=== PATIENT | female | born 1985 | race Caucasian/White ===

== ENCOUNTER 2016-10-22 08:29 | Emergency (ER) | payer MEDICAID ==
[~2016-10-22] VITALS: Ht 177.8 cm; Wt 125.7 kg
[~2016-10-22 08:29] MED LIST: ACET-1600 PO; HYDR-3237 PO; HYDR25TA6 PO; IBUP-1484 PO; MEDR150D3 IM; RANI150T8 PO; TRAM50TA2 PO; amlodipine PO
[2016-10-22 08:31] VITALS: BP 143/93
[2016-10-22] MEDS ORDERED: KETOROLAC 30 MG/1 ML ONE (09:25)
[2016-10-22] MEDS ORDERED: ALBUTEROL/IPRATROPIUM 2.5MG/0.5MG, 3 ML NPPB ONE (09:30)
[2016-10-22] MEDS ORDERED: KETOROLAC 30 MG/1 ML IM ONE (09:30)
[2016-10-22] MEDS ORDERED: ALBUTEROL/IPRATROPIUM 2.5MG/0.5MG, 3 ML ONE (09:54)
== END 2016-10-22 10:18 | disposition home or self-care (01) ==
LOC: ED 08:52
DX: J20.8 Acute bronchitis due to other specified organisms (principal); R06.00 Dyspnea, unspecified; I10 Essential (primary) hypertension; Z87.891 Personal history of nicotine dependence
CPT/HCPCS: 71020; 93005; 94640; 96372; 99284; J1885; J7620

== ENCOUNTER 2017-02-05 11:18 | Emergency (ER) | payer MEDICAID ==
[~2017-02-05] VITALS: Ht 167.6 cm; Wt 128.1 kg
[2017-02-05 11:21] VITALS: BP 159/102
[2017-02-05 12:07] LABS: HEMATOCRIT 39.3 % (34.6-47.8); HEMOGLOBIN 13.3 g/dL (11.7-16.4); WHITE BLOOD COUNT 8.4 x10^3/uL (3.4-10)
[2017-02-05 12:18] LABS: BLOOD UREA NITROGEN 12 mg/dL (7-18)
[2017-02-05 12:22] LABS: ASPARTATE AMINO TRANSFERASE 14 U/L (15-37)
[2017-02-05 12:31] LABS: PATH.CAST-FLAG NOT PRESENT; SPERM-FLAG NOT PRESENT; SRC-FLAG NOT PRESENT; XTAL-FLAG NOT PRESENT; YLC-FLAG NOT PRESENT
[2017-02-05] MEDS ORDERED: PHENAZOPYRIDINE 200 MG TABLET PO ONE (15:00)
[2017-02-05] MEDS ORDERED: PHENAZOPYRIDINE 200 MG TABLET ONE (15:24)
== END 2017-02-05 15:38 | disposition home or self-care (01) ==
LOC: ED 15:00
DX: N30.00 Acute cystitis without hematuria (principal); N83.202 Unspecified ovarian cyst, left side; B37.3 Candidiasis of vulva and vagina; I10 Essential (primary) hypertension
CPT/HCPCS: 36415; 74000; 76830; 80053; 81001; 85025; 87077; 87086; 87186; 99285

== ENCOUNTER 2017-02-07 18:01 | Emergency (ER) | payer MEDICAID ==
[~2017-02-07] VITALS: Ht 167.6 cm; Wt 128.5 kg
[2017-02-07 18:46] LABS: HEMOGLOBIN 14.2 g/dL (11.7-16.4); WHITE BLOOD COUNT 10.9 x10^3/uL (3.4-10)
[2017-02-07 18:55] LABS: ASPARTATE AMINO TRANSFERASE 18 U/L (15-37); BLOOD UREA NITROGEN 11 mg/dL (7-18)
[2017-02-07] MEDS ORDERED: KETOROLAC 30 MG/1 ML IM ONE (19:30)
[2017-02-07] MEDS ORDERED: KETOROLAC 30 MG/1 ML ONE (19:36)
[2017-02-07 20:11] LABS: RAPID INFLUENZA A Negative (Negative); RAPID INFLUENZA B Negative (Negative)
[2017-02-07] MEDS ORDERED: HYDROcodone/APAP 5/325 TABLET ONE (20:36)
[2017-02-07] MEDS ORDERED: HYDROcodone/APAP 5/325 TABLET PO ONE (21:00)
[2017-02-07 21:07] VITALS: BP 135/73
== END 2017-02-07 21:08 | disposition home or self-care (01) ==
LOC: ED 20:00
DX: N30.00 Acute cystitis without hematuria (principal); Z90.710 Acquired absence of both cervix and uterus
CPT/HCPCS: 36415; 80053; 81001; 85025; 87086; 87400; 96372; 99284; J1885

== ENCOUNTER 2017-03-02 19:33 | Emergency (ER) | payer MEDICAID ==
[~2017-03-02] VITALS: Ht 167.6 cm; Wt 128.4 kg
[2017-03-02] MEDS ORDERED: SODIUM CHLORIDE 0.9% 1,000 ML IV ONE (19:55)
[2017-03-02] MEDS ORDERED: SODIUM CHLORIDE 0.9% 1,000ML IVBOLUS ONE (20:00)
[2017-03-02 20:23] LABS: RAPID INFLUENZA A Negative (Negative); RAPID INFLUENZA B Negative (Negative)
[2017-03-02 20:43] LABS: BASOPHILS # (AUTO) 0.04 x10^3/uL (0-0.1); BASOPHILS % (AUTO) 0 % (0-1); EOSINOPHILS % (AUTO) 3 % (1-7); LYMPHOCYTES # (AUTO) 2.36 x10^3/uL (1-3.4); LYMPHOCYTES % (AUTO) 23 % (22-44); MD NO; MEAN CORPUSCULAR HEMOGLOBIN 29.6 pg (27.0-34.8); MEAN CORPUSCULAR HGB CONC 33.4 g/dL (32.4-35.8); MEAN CORPUSCULAR VOLUME 88.6 fL (80-100); MEAN PLATELET VOLUME 10.6 fL (7.4-10.4); MONOCYTES # (AUTO) 0.48 x10^3/uL (0.2-0.8); MONOCYTES % (AUTO) 5 % (2-9); NEUTROPHILS # (AUTO) 6.99 x10^3/uL (1.8-6.8); NEUTROPHILS % (AUTO) 69 % (42-75); PLATELET COUNT 270 x10^3/uL (130-400); RED BLOOD COUNT 4.73 x10^6/uL (3.82-5.3); RED CELL DISTRIBUTION WIDTH 13.6 % (9.6-15.2)
[2017-03-02 20:51] LABS: ALBUMIN 3.6 g/dL (3.4-5.0); ANION GAP 5 mmol/L (5-15); CALCIUM 8.9 mg/dL (8.5-10.1); CHLORIDE 108 mmol/L (98-107); CREATININE 0.71 mg/dL (0.55-1.02)
[2017-03-02 20:55] LABS: TROPONIN I < 0.015 ng/mL (0.000-0.045)
[2017-03-02 21:02] VITALS: BP 136/79
== END 2017-03-02 21:47 | disposition home or self-care (01) ==
LOC: ED 21:28
DX: B34.9 Viral infection, unspecified (principal); R19.7 Diarrhea, unspecified; I10 Essential (primary) hypertension; E66.9 Obesity, unspecified; Z90.49 Acquired absence of other specified parts of digestive tract
CPT/HCPCS: 36415; 71046; 80048; 82040; 84484; 85025; 87400; 93005; 96360; 99285; J7030

== ENCOUNTER 2017-05-06 16:30 | Emergency (ER) | payer MEDICAID ==
[~2017-05-06] VITALS: Ht 175.3 cm; Wt 85.0 kg
[2017-05-06] MEDS ORDERED: KETOROLAC 30 MG/1 ML ONE (16:38)
[2017-05-06] MEDS ORDERED: LISI-170 PO (16:52)
[2017-05-06 16:54] LABS: BASOPHILS # (AUTO) 0.05 x10^3/uL (0-0.1); BASOPHILS % (AUTO) 1 % (0-1); EOSINOPHILS # (AUTO) 0.14 x10^3/uL (0-0.4); EOSINOPHILS % (AUTO) 2 % (1-7); LYMPHOCYTES # (AUTO) 1.89 x10^3/uL (1-3.4); LYMPHOCYTES % (AUTO) 27 % (22-44); MD NO; MEAN CORPUSCULAR HEMOGLOBIN 29.5 pg (27.0-34.8); MEAN CORPUSCULAR HGB CONC 33.5 g/dL (32.4-35.8); MEAN CORPUSCULAR VOLUME 88.2 fL (80-100); MEAN PLATELET VOLUME 10.5 fL (7.4-10.4); MONOCYTES # (AUTO) 0.37 x10^3/uL (0.2-0.8); MONOCYTES % (AUTO) 5 % (2-9); NEUTROPHILS # (AUTO) 4.65 x10^3/uL (1.8-6.8); NEUTROPHILS % (AUTO) 66 % (42-75); PLATELET COUNT 229 x10^3/uL (130-400); RED BLOOD COUNT 4.55 x10^6/uL (3.82-5.3); RED CELL DISTRIBUTION WIDTH 13.6 % (9.6-15.2)
[2017-05-06] MEDS ORDERED: KETOROLAC 30 MG/1 ML IM ONE (17:00)
[2017-05-06 17:05] LABS: ALBUMIN 3.5 g/dL (3.4-5.0); ANION GAP 7 mmol/L (5-15); CALCIUM 8.3 mg/dL (8.5-10.1); CHLORIDE 109 mmol/L (98-107); CREATININE 0.77 mg/dL (0.55-1.02)
[2017-05-06 17:09] LABS: TROPONIN I < 0.015 ng/mL (0.000-0.045)
[2017-05-06 18:10] VITALS: BP 153/65
== END 2017-05-06 18:12 | disposition home or self-care (01) ==
LOC: ED 17:10
DX: R07.89 Other chest pain (principal); I10 Essential (primary) hypertension
CPT/HCPCS: 36415; 71045; 80048; 82040; 84484; 85025; 93005; 96372; 99285; J1885

== ENCOUNTER 2017-06-21 16:42 | Emergency (ER) | payer MEDICAID ==
[~2017-06-21] VITALS: Ht 167.6 cm; Wt 128.0 kg
[~2017-06-21 16:42] MED LIST changes: +LISI-170 PO; +RANI150T23 PO; -RANI150T8 PO
[2017-06-21 16:50] VITALS: BP 139/87
[2017-06-21 17:26] LABS: BASOPHILS # (AUTO) 0.04 x10^3/uL (0-0.1); BASOPHILS % (AUTO) 0 % (0-1); EOSINOPHILS # (AUTO) 0.27 x10^3/uL (0-0.4); EOSINOPHILS % (AUTO) 3 % (1-7); LYMPHOCYTES # (AUTO) 1.85 x10^3/uL (1-3.4); LYMPHOCYTES % (AUTO) 21 % (22-44); MD NO; MEAN CORPUSCULAR HEMOGLOBIN 30.1 pg (27.0-34.8); MEAN CORPUSCULAR HGB CONC 33.5 g/dL (32.4-35.8); MEAN CORPUSCULAR VOLUME 90.1 fL (80-100); MEAN PLATELET VOLUME 10.1 fL (7.4-10.4); MONOCYTES # (AUTO) 0.46 x10^3/uL (0.2-0.8); MONOCYTES % (AUTO) 5 % (2-9); NEUTROPHILS # (AUTO) 6.35 x10^3/uL (1.8-6.8); NEUTROPHILS % (AUTO) 71 % (42-75); PLATELET COUNT 223 x10^3/uL (130-400); RED BLOOD COUNT 4.65 x10^6/uL (3.82-5.3); RED CELL DISTRIBUTION WIDTH 13.7 % (9.6-15.2)
[2017-06-21 17:35] LABS: ALANINE AMINOTRANSFERASE 44 U/L (12-78); ALBUMIN 3.5 g/dL (3.4-5.0); ANION GAP 10 mmol/L (5-15); CALCIUM 8.4 mg/dL (8.5-10.1); CHLORIDE 108 mmol/L (98-107); CREATININE 0.81 mg/dL (0.55-1.02)
[2017-06-21 17:37] LABS: ALKALINE PHOSPHATASE 94 U/L (45-117); BILIRUBIN,TOTAL 0.8 mg/dL (0.2-1.0); TOTAL PROTEIN 7.4 g/dL (6.4-8.2)
[2017-06-21] MEDS ORDERED: MAALOX/HYOSCYAMINE/LIDOCAINE 45 ML BTL PO ONE (18:00)
[2017-06-21] MEDS ORDERED: LOPERAMIDE 2 MG CAPSULE PO ONE (18:00)
[2017-06-21] MEDS ORDERED: LOPERAMIDE 2 MG CAPSULE ONE (18:10)
[2017-06-21] MEDS ORDERED: MAALOX/HYOSCYAMINE/LIDOCAINE 45 ML BTL ONE (18:10)
== END 2017-06-21 18:25 | disposition home or self-care (01) ==
LOC: ED 18:18
DX: J06.9 Acute upper respiratory infection, unspecified (principal); R19.7 Diarrhea, unspecified; I10 Essential (primary) hypertension; Z90.49 Acquired absence of other specified parts of digestive tract; E66.9 Obesity, unspecified
CPT/HCPCS: 36415; 71045; 80053; 85025; 99285

== ENCOUNTER 2019-02-12 14:02 | Emergency (ER) | payer MEDICAID ==
[~2019-02-12 14:02] MED LIST changes: -IBUP-1484 PO; +IBUP-1902 PO; +RANI-467 PO; -RANI150T23 PO
--- NOTE | 2019-02-12 14:40 | NUR ---
PT MORE CALM NOW, BUT STILL FEELS LIKE HER HEART IS "BEATING A LITTLE FAST". SR 80s ON MONITOR. FAMILY AT BS. POC RV'WD WITH PT.
[2019-02-12 14:53] LABS: BASOPHILS # (AUTO) 0.05 x10^3/uL (0-0.1); BASOPHILS % (AUTO) 0 % (0-1); EOSINOPHILS % (AUTO) 2 % (1-7); LYMPHOCYTES # (AUTO) 2.06 x10^3/uL (1-3.4); LYMPHOCYTES % (AUTO) 17 % (22-44); MD NO; MEAN CORPUSCULAR HEMOGLOBIN 30.5 pg (27.0-34.8); MEAN CORPUSCULAR HGB CONC 32.7 g/dL (32.4-35.8); MEAN CORPUSCULAR VOLUME 93.1 fL (80-100); MEAN PLATELET VOLUME 10.5 fL (7.4-10.4); MONOCYTES # (AUTO) 0.71 x10^3/uL (0.2-0.8); MONOCYTES % (AUTO) 6 % (2-9); NEUTROPHILS # (AUTO) 8.87 x10^3/uL (1.8-6.8); NEUTROPHILS % (AUTO) 75 % (42-75); PLATELET COUNT 276 x10^3/uL (130-400); RED BLOOD COUNT 4.74 x10^6/uL (3.82-5.3); RED CELL DISTRIBUTION WIDTH 13.3 % (9.6-15.2)
[2019-02-12 15:05] LABS: ALBUMIN 3.4 g/dL (3.4-5.0); ANION GAP 8 mmol/L (5-15); CALCIUM 8.5 mg/dL (8.5-10.1); CHLORIDE 110 mmol/L (98-107); CREATININE 0.92 mg/dL (0.55-1.02)
[2019-02-12 15:10] LABS: TROPONIN I < 0.015 ng/mL (0.000-0.045)
[2019-02-12] MEDS ORDERED: HYDROcodone/APAP 5/325 TABLET ONE (15:25)
[2019-02-12] MEDS ORDERED: HYDROcodone/APAP 5/325 TABLET PO ONE (15:30)
[2019-02-12] MEDS ORDERED: PLEASE ENTER HEIGHT AND WEIGHT MC SCH (15:30)
[2019-02-12 15:57] VITALS: BP 137/80
--- NOTE | 2019-02-12 15:58 | NUR ---
PT VERBALIZES RELIEF AFTER NORCO. D/C INSTRUCTIONS, MEDS & F/U APPT RV'WD WITH PT, SHE VERBALIZES UNDERSTANDING. RX GIVEN X1. PT AMBULATED OUT OF ED WITH FAMILY WITHOUT DIFFICULTY.
== END 2019-02-12 15:59 | disposition home or self-care (01) ==
LOC: ED 15:12
DX: R07.89 Other chest pain (principal); R06.02 Shortness of breath; I10 Essential (primary) hypertension
CPT/HCPCS: 36415; 71045; 80048; 82040; 84484; 84703; 85025; 93005; 99284

== ENCOUNTER 2019-03-21 06:55 | Emergency (ER) | payer MEDICAID ==
[~2019-03-21] VITALS: Ht 167.6 cm; Wt 88.0 kg
--- NOTE | 2019-03-21 07:02 | NUR ---
PT WITH C/O GRIGGS/EXPRESSIVE APHASIA AND NAUSEA BEGINNING YESTERDAY APPROX 0300. PT WITH HX MIGRAINES AND "MULTIPLE CONCUSIONS" PT STATES HAVING SOME BLURRED VISION AT THIS TIME, PT ALSO C/O DIARRHEA YESTERDAY AND EARLY THIS AM, APPOX 5 TIMES PT WITH NO FOCAL NEURO DEFICITS AT THIS TIME.
[2019-03-21] MEDS ORDERED: PROCHLORPERAZINE 5 MG/ML, 2ML IVPush ONE (07:30)
[2019-03-21] MEDS ORDERED: SODIUM CHLORIDE FLUSH 10ML SYR IVF ONE (07:30)
[2019-03-21 07:46] LABS: BASOPHILS # (AUTO) 0.01 x10^3/uL (0-0.1); BASOPHILS % (AUTO) 0 % (0-1); EOSINOPHILS # (AUTO) 0.02 x10^3/uL (0-0.4); EOSINOPHILS % (AUTO) 0 % (1-7); LYMPHOCYTES # (AUTO) 0.96 x10^3/uL (1-3.4); LYMPHOCYTES % (AUTO) 13 % (22-44); MD NO; MEAN CORPUSCULAR HEMOGLOBIN 30.5 pg (27.0-34.8); MEAN CORPUSCULAR HGB CONC 33.1 g/dL (32.4-35.8); MEAN CORPUSCULAR VOLUME 92.1 fL (80-100); MEAN PLATELET VOLUME 10.4 fL (7.4-10.4); MONOCYTES # (AUTO) 0.24 x10^3/uL (0.2-0.8); MONOCYTES % (AUTO) 3 % (2-9); NEUTROPHILS # (AUTO) 6.18 x10^3/uL (1.8-6.8); NEUTROPHILS % (AUTO) 83 % (42-75); PLATELET COUNT 211 x10^3/uL (130-400); RED BLOOD COUNT 4.38 x10^6/uL (3.82-5.3); RED CELL DISTRIBUTION WIDTH 12.8 % (9.6-15.2)
--- NOTE | 2019-03-21 07:50 | NUR ---
PT AMBULATED TO WITH STEADY GAIT, UA SAMPLE COLLECTED AND SENT TO LAB, PT BACK TO [facility] AND MEDICATED PER APR.
[2019-03-21] MEDS ORDERED: PROCHLORPERAZINE 5 MG/ML, 2ML ONE (07:52)
[2019-03-21 07:57] LABS: ALANINE AMINOTRANSFERASE 18 U/L (12-78); ALBUMIN 3.3 g/dL (3.4-5.0); ANION GAP 6 mmol/L (5-15); CALCIUM 8.4 mg/dL (8.5-10.1); CHLORIDE 111 mmol/L (98-107); CREATININE 0.81 mg/dL (0.55-1.02)
[2019-03-21 07:59] LABS: ALKALINE PHOSPHATASE 75 U/L (45-117); BILIRUBIN,TOTAL 1.1 mg/dL (0.2-1.0); TOTAL PROTEIN 6.6 g/dL (6.4-8.2)
[2019-03-21 08:24] LABS: MICROSCOPIC AUTO
[2019-03-21 08:27] LABS: CULTURE INDICATED? YES
[2019-03-21] MEDS ORDERED: DIPHENHYDRAMINE 50 MG/ML, 1ML IVPush ONE (08:30)
[2019-03-21] MEDS ORDERED: DIPHENHYDRAMINE 50 MG/ML, 1ML ONE (08:37)
--- NOTE | 2019-03-21 09:33 | NUR ---
PT RESTING ON HATTIE, STATES RELEIF FROM CLUBHOUSE ATTENDANT. PT ALSO STATES "I FEEL UNCOMFORTABLE MENTALLY AND PHYSICALLY ITS HARD TO EXPLAIN" WILL UPDATE
[2019-03-21 10:54] VITALS: BP 142/68
--- NOTE | 2019-03-21 10:55 | NUR ---
PT PLACED FOR RECHECK, AWAITING MD. VSS, NAD NOTED
== END 2019-03-21 11:53 | disposition home or self-care (01) ==
LOC: ED 10:44
DX: G43.C1 Periodic headache syndromes in child or adult, intractable (principal); N30.00 Acute cystitis without hematuria; R20.2 Paresthesia of skin
CPT/HCPCS: 36415; 80053; 81001; 85025; 87086; 93005; 96374; 96375; 99284; J0780; J1200

== ENCOUNTER 2019-09-06 07:17 | Emergency (ER) | payer MEDICAID ==
[~2019-09-06] VITALS: Ht 167.6 cm; Wt 140.0 kg
--- NOTE | 2019-09-06 07:17 | NUR ---
Pt BIB [facility]-c/o L sided CP and palpitations intermittently x1 week. Pt seen by PCP for same. Pt states current CP and palpitations present since 0100 this AM. Pt also c/o congestion and SOB x2 days. Pt speaking in full sentences, resp even and unlabored. Pt rates pain 8/10 currently. Continuous heart, oxygen and BP Monitors applied, all safety measures observed.
[2019-09-06 07:52] LABS: BASOPHILS # (AUTO) 0.03 x10^3/uL (0-0.1); BASOPHILS % (AUTO) 0 % (0-1); EOSINOPHILS # (AUTO) 0.04 x10^3/uL (0-0.4); EOSINOPHILS % (AUTO) 0 % (1-7); LYMPHOCYTES # (AUTO) 0.71 x10^3/uL (1-3.4); LYMPHOCYTES % (AUTO) 7 % (22-44); MD NO; MEAN CORPUSCULAR HEMOGLOBIN 29.6 pg (27.0-34.8); MEAN CORPUSCULAR HGB CONC 32.6 g/dL (32.4-35.8); MEAN CORPUSCULAR VOLUME 90.8 fL (80-100); MEAN PLATELET VOLUME 10.4 fL (7.4-10.4); MONOCYTES # (AUTO) 0.49 x10^3/uL (0.2-0.8); MONOCYTES % (AUTO) 5 % (2-9); NEUTROPHILS # (AUTO) 9.36 x10^3/uL (1.8-6.8); NEUTROPHILS % (AUTO) 88 % (42-75); PLATELET COUNT 179 x10^3/uL (130-400); RED BLOOD COUNT 4.47 x10^6/uL (3.82-5.3); RED CELL DISTRIBUTION WIDTH 13.6 % (9.6-15.2)
[2019-09-06 08:03] LABS: ALANINE AMINOTRANSFERASE 26 U/L (12-78); ALBUMIN 3.4 g/dL (3.4-5.0); ANION GAP 6 mmol/L (5-15); CALCIUM 8.5 mg/dL (8.5-10.1); CHLORIDE 106 mmol/L (98-107); CREATININE 0.93 mg/dL (0.55-1.02)
[2019-09-06 08:08] LABS: ALKALINE PHOSPHATASE 100 U/L (45-117); BILIRUBIN,TOTAL 1.2 mg/dL (0.2-1.0); FREE T4 (FREE THYROXINE) 0.99 ng/dL (0.76-1.46); TOTAL PROTEIN 7.5 g/dL (6.4-8.2); TROPONIN I < 0.015 ng/mL (0.000-0.045)
[2019-09-06] MEDS ORDERED: KETOROLAC 30 MG/1 ML ONE (08:10)
--- NOTE | 2019-09-06 08:22 | NUR ---
Toradol administered for 8/10 L CP per APR. Pt resting in bed, denies other needs.
[2019-09-06] MEDS ORDERED: KETOROLAC 30 MG/1 ML IM ONE (08:30)
--- NOTE | 2019-09-06 09:53 | NUR ---
TASK RN: CARE FOR DC ONLY PROVIDED. PT SITTING UP ON GURNEY, NO ACUTE DISTRESS NOTED. SR-ST PER MONITOR. AUTO BP AND PULSE OX IN PLACE. RYDER DENNIS AT BEDSIDE TO RE-EVAL PT, DISCUSS DIAGNOSIS. IV DC'D WITH CANNULA INTACT. REVIEWED DC INSTRUCTIONS WITH PT, UNDERSTANDING VERBALIZED. PT TO CALL MOM FOR TRANSPORT HOME. PT LEFT AMB, GAIT STEADY.
[2019-09-06 09:55] VITALS: BP 151/95
== END 2019-09-06 09:57 | disposition home or self-care (01) ==
LOC: ED 07:44
DX: M94.0 Chondrocostal junction syndrome [Tietze] (principal); Z20.828 Contact with and (suspected) exposure to other viral communicable diseases; R06.02 Shortness of breath; R07.89 Other chest pain; R11.0 Nausea; E16.2 Hypoglycemia, unspecified; E66.9 Obesity, unspecified; R00.0 Tachycardia, unspecified; I10 Essential (primary) hypertension; Z68.42 Body mass index [BMI] 45.0-49.9, adult; Z90.89 Acquired absence of other organs; Z90.710 Acquired absence of both cervix and uterus; Z90.49 Acquired absence of other specified parts of digestive tract; Z87.891 Personal history of nicotine dependence
CPT/HCPCS: 36415; 71045; 80053; 84439; 84443; 84484; 84703; 85025; 87635; 93005; 96372; 99285; J1885

== ENCOUNTER 2020-01-27 07:10 | Emergency (ER) | payer MEDICAID ==
[~2020-01-27] VITALS: Ht 167.6 cm; Wt 92.0 kg
[2020-01-27] MEDS ORDERED: MAALOX/HYOSCYAMINE/LIDOCAINE 45 ML BTL PO ONE (07:30)
[2020-01-27] MEDS ORDERED: FAMOTIDINE 20 MG TABLET ONE (07:51)
[2020-01-27] MEDS ORDERED: MAALOX/HYOSCYAMINE/LIDOCAINE 45 ML BTL ONE (07:51)
[2020-01-27 07:53] VITALS: BP 156/83
[2020-01-27] MEDS ORDERED: FAMOTIDINE 20 MG TABLET PO ONE (08:00)
[2020-01-27 08:22] LABS: BASOPHILS % (AUTO) 1 % (0-1); EOSINOPHILS % (AUTO) 1 % (1-7); LYMPHOCYTES % (AUTO) 14 % (22-44); MEAN CORPUSCULAR HEMOGLOBIN 30.1 pg (27.0-34.8); MEAN CORPUSCULAR HGB CONC 33.6 g/dL (32.4-35.8); MEAN PLATELET VOLUME 10.7 fL (7.4-10.4); MONOCYTES % (AUTO) 6 % (2-9); NEUTROPHILS % (AUTO) 79 % (42-75); PLATELET COUNT 187 x10^3/uL (130-400); RED BLOOD COUNT 4.53 x10^6/uL (3.82-5.3); RED CELL DISTRIBUTION WIDTH 13.8 % (9.6-15.2)
[2020-01-27 08:31] LABS: MD NO
[2020-01-27 08:32] LABS: ALBUMIN 3.4 g/dL (3.4-5.0); ANION GAP 5 mmol/L (5-15); CALCIUM 8.7 mg/dL (8.5-10.1); CHLORIDE 109 mmol/L (98-107)
[2020-01-27 08:38] LABS: ALANINE AMINOTRANSFERASE 31 U/L (12-78); ALKALINE PHOSPHATASE 94 U/L (45-117); BILIRUBIN,TOTAL 0.8 mg/dL (0.2-1.0); CREATININE 0.83 mg/dL (0.55-1.02); TOTAL PROTEIN 7.2 g/dL (6.4-8.2)
== END 2020-01-27 10:36 | disposition home or self-care (01) ==
LOC: ED 08:15
DX: K29.00 Acute gastritis without bleeding (principal); J02.9 Acute pharyngitis, unspecified; I10 Essential (primary) hypertension; E66.9 Obesity, unspecified; K21.9 Gastro-esophageal reflux disease without esophagitis; Z88.1 Allergy status to other antibiotic agents; Z88.5 Allergy status to narcotic agent; Z90.49 Acquired absence of other specified parts of digestive tract
CPT/HCPCS: 36415; 71045; 76700; 80053; 83690; 84703; 85025; 87081; 87880; 99285

== ENCOUNTER → 2020-03-27 | Outpatient (CLI) | payer MEDICAID ==
[~2020-03-27] MED LIST changes: +ALBU8.5H8 INH; +LISI5TAB7 PO; +OMEP20TA62 PO; +PRENATAL PO
[2020-03-27 11:42] LABS: CALCIUM 8.8 mg/dL (8.5-10.1); CHLORIDE 108 mmol/L (98-107)
[2020-03-27 11:46] LABS: ALANINE AMINOTRANSFERASE 34 U/L (12-78); ALBUMIN 3.8 g/dL (3.4-5.0); ALKALINE PHOSPHATASE 110 U/L (45-117); ANION GAP 7 mmol/L (5-15); CREATININE 0.77 mg/dL (0.55-1.02); TOTAL PROTEIN 7.7 g/dL (6.4-8.2)
== END | disposition home or self-care (01) ==
LOC: STAR 10:15
PROVIDERS: ATTEND Internal Medicine Gastroenterology
DX: Z01.812 Encounter for preprocedural laboratory examination (principal); R10.13 Epigastric pain; Z20.822 Contact with and (suspected) exposure to COVID-19
CPT/HCPCS: 80053; 87635

== ENCOUNTER 2020-04-02 11:07 | Day surgery (SDC) | payer MEDICAID ==
[~2020-04-02] VITALS: Ht 167.6 cm; Wt 138.3 kg
[2020-04-02 11:24] VITALS: BP 180/113
[2020-04-02] MEDS ORDERED: CHLORHEXIDINE 15 ML UDC MM ONE (11:30)
[2020-04-02] MEDS ORDERED: LACTATED RINGERS 1,000 ML IV SCH (11:30)
[2020-04-02 11:52] LABS: HCG UR SG 1.024 (1.003-1.030)
[2020-04-02] MEDS ORDERED: PROPOFOL 10 MG/ML, 50ML ONE (13:29)
[2020-04-02] MEDS ORDERED: MEPERIDINE/PF 25MG/0.5ML IVPush PRN (14:00)
[2020-04-02] MEDS ORDERED: EPHEDRINE 50 MG/ML, 1ML IVPush PRN (14:00)
[2020-04-02] MEDS ORDERED: FENTANYL PF 100 MCG/2ML ONE (14:00)
[2020-04-02] MEDS ORDERED: PROMETHAZINE 25 MG/ML, 1ML IVPush PRN (14:00)
[2020-04-02] MEDS ORDERED: DIPHENHYDRAMINE 50 MG/ML, 1ML IVPush PRN (14:00)
[2020-04-02] MEDS ORDERED: FENTANYL PF 100 MCG/2ML IV PRN (14:00)
[2020-04-02] MEDS ORDERED: ONDANSETRON 2MG/ML, 2ML IVPush PRN (14:00)
[2020-04-02] MEDS ORDERED: LABETALOL 5MG/ML, 20ML IV PRN (14:00)
[2020-04-02] MEDS ORDERED: EPHEDRINE 50 MG/ML, 1ML IM PRN (14:00)
[2020-04-02] MEDS ORDERED: DIAZEPAM 5 MG/ML, 2ML IVPush PRN (14:00)
[2020-04-02] MEDS ORDERED: LABETALOL 5MG/ML, 20ML ONE (14:07)
[2020-04-02] MEDS ORDERED: KETOROLAC 30 MG/1 ML ONE (14:42)
[2020-04-02] MEDS ORDERED: KETOROLAC 30 MG/1 ML IVPush PRN (15:00)
== END 2020-04-02 15:45 | disposition home or self-care (01) ==
LOC: OUT 11:07
PROVIDERS: ATTEND Internal Medicine Gastroenterology
DX: R10.13 Epigastric pain (principal); K29.50 Unspecified chronic gastritis without bleeding; K22.70 Barrett's esophagus without dysplasia; K31.7 Polyp of stomach and duodenum; E66.01 Morbid (severe) obesity due to excess calories; G47.33 Obstructive sleep apnea (adult) (pediatric); F17.290 Nicotine dependence, other tobacco product, uncomplicated; Z68.42 Body mass index [BMI] 45.0-49.9, adult; Z79.899 Other long term (current) drug therapy; Z88.5 Allergy status to narcotic agent; Z90.49 Acquired absence of other specified parts of digestive tract
CPT/HCPCS: 43239; 43251; 81025; 88305; J1885; J2704; J3010; J7120

== ENCOUNTER 2020-04-25 19:41 | Emergency (ER) | payer MEDICAID ==
[~2020-04-25] VITALS: Ht 167.6 cm; Wt 141.1 kg
--- NOTE | 2020-04-25 20:17 | NUR ---
Report from RAHEL Kemp. Assumed care.
--- NOTE | 2020-04-25 20:20 | NUR ---
Pt moved from room 1 to room 7.
[2020-04-25] MEDS ORDERED: MAALOX/HYOSCYAMINE/LIDOCAINE 45 ML BTL PO ONE (20:30)
[2020-04-25] MEDS ORDERED: DIPH,PERTUSS(ACELL),TET VAC/PF 0.5 ML IM-VACC ONE ×2 (20:30→20:40)
[2020-04-25] MEDS ORDERED: MAALOX/HYOSCYAMINE/LIDOCAINE 45 ML BTL ONE (20:40)
--- NOTE | 2020-04-25 20:47 | NUR ---
Medicated via eMAR
[2020-04-25 20:51] LABS: BASOPHILS % (AUTO) 1 % (0-1); EOSINOPHILS % (AUTO) 2 % (1-7); LYMPHOCYTES % (AUTO) 22 % (22-44); MEAN CORPUSCULAR HEMOGLOBIN 29.9 pg (27.0-34.8); MEAN CORPUSCULAR HGB CONC 33.6 g/dL (32.4-35.8); MEAN PLATELET VOLUME 10.7 fL (7.4-10.4); MONOCYTES % (AUTO) 5 % (2-9); NEUTROPHILS % (AUTO) 70 % (42-75); PLATELET COUNT 225 x10^3/uL (130-400); RED BLOOD COUNT 4.35 x10^6/uL (3.82-5.3); RED CELL DISTRIBUTION WIDTH 13.9 % (9.6-15.2)
[2020-04-25 20:52] LABS: MD NO
[2020-04-25 20:54] LABS: ALBUMIN 3.4 g/dL (3.4-5.0); ANION GAP 9 mmol/L (5-15); CALCIUM 8.1 mg/dL (8.5-10.1); CHLORIDE 109 mmol/L (98-107)
[2020-04-25 21:00] LABS: ALANINE AMINOTRANSFERASE 32 U/L (12-78); ALKALINE PHOSPHATASE 98 U/L (45-117); BILIRUBIN,TOTAL 0.6 mg/dL (0.2-1.0); CREATININE 1.07 mg/dL (0.55-1.02); TOTAL PROTEIN 7.3 g/dL (6.4-8.2)
--- NOTE | 2020-04-25 21:23 | NUR ---
Pt ambulating to bathroom, equal steady gait.
--- NOTE | 2020-04-25 21:30 | NUR ---
Pt reports she feels "much better now and ready to go home"
--- NOTE | 2020-04-25 21:30 | NUR ---
UA collected and tubed to lab.
[2020-04-25 21:42] LABS: MICROSCOPIC NOT IND
--- NOTE | 2020-04-25 21:45 | NUR ---
TASK RN: PT EDUCATED ON NPO STATUS.
--- NOTE | 2020-04-25 21:48 | NUR ---
TASK RN: PT RESTING IN [place] AT THIS TIME, FAMILY AT BEDSIDE, PT MEDICATED PER EMAR, MONITORING IN PLACE.
[2020-04-25 23:34] VITALS: BP 151/98
== END 2020-04-26 00:04 | disposition home or self-care (01) ==
LOC: ED 21:45
DX: R10.84 Generalized abdominal pain (principal); R11.2 Nausea with vomiting, unspecified; R19.7 Diarrhea, unspecified; I10 Essential (primary) hypertension; E16.2 Hypoglycemia, unspecified; E66.9 Obesity, unspecified; Z68.43 Body mass index [BMI] 50.0-59.9, adult; Z90.89 Acquired absence of other organs; Z90.49 Acquired absence of other specified parts of digestive tract; Z90.710 Acquired absence of both cervix and uterus
CPT/HCPCS: 36415; 80053; 81003; 83690; 84703; 85025; 90471; 90715; 99283

== ENCOUNTER 2020-06-03 12:31 | Emergency (ER) | payer MEDICAID ==
[~2020-06-03] VITALS: Ht 167.6 cm; Wt 142.0 kg
[2020-06-03] MEDS ORDERED: HYDROcodone/APAP 5/325 TABLET ONE (14:50)
[2020-06-03] MEDS ORDERED: HYDROcodone/APAP 5/325 TABLET PO ONE (15:00)
--- NOTE | 2020-06-03 15:03 | NUR ---
MEDICATED FOR PAIN, XR AT BEDSIDE.
[2020-06-03 15:54] VITALS: BP 150/81
--- NOTE | 2020-06-03 15:55 | NUR ---
CRUTCHES AND AIR STIRRUP PROVIDED TO PT. EDUCATION FOR CRUTCH USE PROVIDED. PT DEMONSTRATED CRUTCH USE
== END 2020-06-03 15:57 | disposition home or self-care (01) ==
LOC: ED 15:50
DX: S93.401A Sprain of unspecified ligament of right ankle, initial encounter (principal); S90.31XA Contusion of right foot, initial encounter; K02.9 Dental caries, unspecified; I10 Essential (primary) hypertension; E16.2 Hypoglycemia, unspecified; E66.9 Obesity, unspecified; Z68.43 Body mass index [BMI] 50.0-59.9, adult; Z90.89 Acquired absence of other organs; Z90.49 Acquired absence of other specified parts of digestive tract; Z90.710 Acquired absence of both cervix and uterus; X58.XXXA Exposure to other specified factors, initial encounter; Y93.89 Activity, other specified; Y92.89 Other specified places as the place of occurrence of the external cause; Y99.8 Other external cause status
CPT/HCPCS: 99284

== ENCOUNTER 2020-06-06 08:33 | Emergency (ER) | payer MEDICAID ==
[~2020-06-06] VITALS: Ht 167.6 cm; Wt 139.4 kg
--- NOTE | 2020-06-06 09:05 | NUR ---
silver holloware assembler completed. Pt asked to change into gown and call light in reach.
[2020-06-06] MEDS ORDERED: NAPR-996 PO (09:11)
[2020-06-06] MEDS ORDERED: CLIN300C9 PO (09:11)
--- NOTE | 2020-06-06 09:15 | NUR ---
PA in room for exam.
[2020-06-06] MEDS ORDERED: SODIUM CHLORIDE FLUSH 10ML SYR IVF ONE (09:30)
--- NOTE | 2020-06-06 09:33 | NUR ---
IV started x1 attempt for CT with contrast orders. Pt tolerated well. Warm blanket provided. Awaiting career guidance technician now.
--- NOTE | 2020-06-06 09:51 | NUR ---
New lab orders added and orthodontic lab technician at bedside for draw now.
[2020-06-06 09:57] LABS: RAPID INFLUENZA A Negative (Negative); RAPID INFLUENZA B Negative (Negative)
[2020-06-06 10:11] LABS: BASOPHILS % (AUTO) 1 % (0-1); EOSINOPHILS % (AUTO) 0 % (1-7); LYMPHOCYTES % (AUTO) 11 % (22-44); MEAN CORPUSCULAR HEMOGLOBIN 29.5 pg (27.0-34.8); MEAN CORPUSCULAR HGB CONC 33.6 g/dL (32.4-35.8); MEAN PLATELET VOLUME 10.2 fL (7.4-10.4); MONOCYTES % (AUTO) 5 % (2-9); NEUTROPHILS % (AUTO) 84 % (42-75); PLATELET COUNT 196 x10^3/uL (130-400); RED BLOOD COUNT 4.45 x10^6/uL (3.82-5.3); RED CELL DISTRIBUTION WIDTH 14.3 % (9.6-15.2)
[2020-06-06 10:12] LABS: MD NO
[2020-06-06 10:16] LABS: ANION GAP 6 mmol/L (5-15); CALCIUM 8.4 mg/dL (8.5-10.1); CHLORIDE 108 mmol/L (98-107); CREATININE 0.66 mg/dL (0.55-1.02)
--- NOTE | 2020-06-06 10:21 | NUR ---
Pt checked. Has not been to CT yet. VSS, watching TV for diversion.
--- NOTE | 2020-06-06 10:55 | NUR ---
CT called to inquire when pt will be brought back. cardiac cath lab radiology technologist states they were awaiting lab results and she will be brought back in the next 10 minutes. Pt updated to this information. Pt asking for something for pain in L face. Request for pain meds passed on at this time, awaiting orders.
[2020-06-06] MEDS ORDERED: KETOROLAC 30 MG/1 ML IVPush ONE (11:00)
[2020-06-06] MEDS ORDERED: KETOROLAC 30 MG/1 ML ONE (11:10)
--- NOTE | 2020-06-06 11:14 | NUR ---
Pt medicated for pain at this time and then taken by train control electronic technician via gurney.
[2020-06-06] MEDS ORDERED: OMNIPAQUE 350 MG/ML, 100ML BOTTLE ONE (11:35)
--- NOTE | 2020-06-06 12:00 | NUR ---
Pt states minimal pain relief after medical doctor md/medical director on reassessment. Pain now 08/29 but states it feels tolerable now. Pt ambulatory to restroom without gait disturbance noted.
--- NOTE | 2020-06-06 12:17 | NUR ---
IV abx started at this time. MD at bedside to discuss findings and plan of care.
[2020-06-06] MEDS ORDERED: AMPICILLIN/SULBACTAM 3 GM in SODIUM CHLORIDE 0.9% 100 ML IV ONE (12:30)
--- NOTE | 2020-06-06 12:45 | NUR ---
Pt without rxn to abx noted and infusing well. Pt requests pain meds again and PA notified, awaiting any orders. D/C paperwork at bedside for when abx infusing is completed.
[2020-06-06] MEDS ORDERED: ONDANSETRON ODT 4 MG PO ONE (13:30)
[2020-06-06] MEDS ORDERED: HYDROcodone/APAP 5/325 TABLET PO ONE (13:30)
[2020-06-06] MEDS ORDERED: ONDANSETRON 4 MG TABLET PO ONE (13:30)
[2020-06-06 13:37] VITALS: BP 131/69
--- NOTE | 2020-06-06 13:39 | NUR ---
Pt left prior to pain med orders being placed. Therefore, [place] and zofran not given.
== END 2020-06-06 13:40 | disposition home or self-care (01) ==
LOC: ED 09:09
DX: K02.9 Dental caries, unspecified (principal); L03.213 Periorbital cellulitis; K11.20 Sialoadenitis, unspecified; Z20.822 Contact with and (suspected) exposure to COVID-19; K21.9 Gastro-esophageal reflux disease without esophagitis; E66.01 Morbid (severe) obesity due to excess calories; Z68.42 Body mass index [BMI] 45.0-49.9, adult; Z90.49 Acquired absence of other specified parts of digestive tract; Z88.5 Allergy status to narcotic agent
CPT/HCPCS: 36415; 70487; 70491; 80048; 85025; 87400; 96365; 96375; 99285; J0295; J1885; Q9967; U0003

== ENCOUNTER 2020-10-07 10:32 | Emergency (ER) | payer MEDICAID ==
[~2020-10-07] VITALS: Ht 167.6 cm; Wt 147.4 kg
[~2020-10-07 10:32] MED LIST changes: +CLIN300C9 PO; +NAPR-996 PO
--- NOTE | 2020-10-07 11:07 | NUR ---
PT PRESENTS WITH C/O LEFT FLANK PAIN THAT RADIATES TO LOWER ABD, +CHILLS, SYMPTOMS BEGAN LAST NIGHT.
[2020-10-07] MEDS ORDERED: LOSA50TA14 PO (11:12)
[2020-10-07] MEDS ORDERED: OMEP20CA20 PO (11:12)
[2020-10-07 12:08] LABS: MICROSCOPIC NOT IND
[2020-10-07 12:25] LABS: BASOPHILS % (AUTO) 1 % (0-1); EOSINOPHILS % (AUTO) 1 % (1-7); LYMPHOCYTES % (AUTO) 19 % (22-44); MEAN CORPUSCULAR HEMOGLOBIN 29.5 pg (27.0-34.8); MEAN CORPUSCULAR HGB CONC 33.2 g/dL (32.4-35.8); MEAN PLATELET VOLUME 10.1 fL (7.4-10.4); MONOCYTES % (AUTO) 5 % (2-9); NEUTROPHILS % (AUTO) 75 % (42-75); PLATELET COUNT 224 x10^3/uL (130-400); RED CELL DISTRIBUTION WIDTH 13.9 % (9.6-15.2)
[2020-10-07 12:32] LABS: ALBUMIN 3.1 g/dL (3.4-5.0); ANION GAP 5 mmol/L (5-15); CALCIUM 8.5 mg/dL (8.5-10.1); CHLORIDE 107 mmol/L (98-107)
[2020-10-07 12:38] LABS: ALANINE AMINOTRANSFERASE 30 U/L (12-78); ALKALINE PHOSPHATASE 104 U/L (45-117); BILIRUBIN,TOTAL 0.5 mg/dL (0.2-1.0); CREATININE 0.77 mg/dL (0.55-1.02); TOTAL PROTEIN 7.7 g/dL (6.4-8.2)
[2020-10-07 12:45] VITALS: BP 155/100
--- NOTE | 2020-10-07 13:50 | NUR ---
DR. MCWILLIAMS AT BEDSIDE FOR PELVIC EXAM.
[2020-10-07] MEDS ORDERED: ACETAMINOPHEN 500 MG TABLET PO ONE (14:00)
[2020-10-07] MEDS ORDERED: METHOCARBAMOL 750 MG TABLET PO ONE (14:00)
[2020-10-07] MEDS ORDERED: METHOCARBAMOL 750 MG TABLET ONE (14:04)
[2020-10-07] MEDS ORDERED: ACETAMINOPHEN 500 MG TABLET ONE (14:04)
[2020-10-07 14:27] LABS: CLUE CELLS NONE SEEN (NONE SEEN)
[2020-10-07 14:28] LABS: WET PREP WBCS FEW (FEW)
== END 2020-10-07 15:00 | disposition home or self-care (01) ==
LOC: ED 12:00
DX: S39.012A Strain of muscle, fascia and tendon of lower back, initial encounter (principal); N89.8 Other specified noninflammatory disorders of vagina; R50.9 Fever, unspecified; R63.0 Anorexia; Z68.43 Body mass index [BMI] 50.0-59.9, adult; Z87.891 Personal history of nicotine dependence; K21.9 Gastro-esophageal reflux disease without esophagitis; I10 Essential (primary) hypertension; Z90.89 Acquired absence of other organs; Z90.49 Acquired absence of other specified parts of digestive tract; Z90.710 Acquired absence of both cervix and uterus; Z88.5 Allergy status to narcotic agent; X58.XXXA Exposure to other specified factors, initial encounter; Y93.89 Activity, other specified; Y92.89 Other specified places as the place of occurrence of the external cause; Y99.8 Other external cause status
CPT/HCPCS: 36415; 80053; 81003; 84703; 85025; 87210; 87491; 87591; 87808; 99284

== ENCOUNTER 2020-11-03 18:37 | Emergency (ER) | payer MEDICAID ==
[~2020-11-03] VITALS: Ht 167.6 cm; Wt 148.0 kg
[~2020-11-03 18:37] MED LIST changes: +LOSA50TA14 PO; +OMEP20CA20 PO
--- NOTE | 2020-11-03 20:31 | NUR ---
PT UPDATED ON ALL RESULTS BY LEONID REESE. ALL DISCHARGED INSTRUCTIONS GONE OVER WITH PT. ALL QUESTIONS ANSWERED. STRICT FOLLOW UP PRECAUTIONS DISCUSSED.
--- NOTE | 2020-11-03 20:31 | NUR ---
Patient/Caregiver given discharge instructions and they have confirmed that they understand the instructions. Patient ambulatory with steady gait. NAD, all questions answered appropriately, denies additional needs at this time. No personal belongings left in room after discharge.
== END 2020-11-03 20:33 | disposition home or self-care (01) ==
LOC: ED 20:25
DX: J02.9 Acute pharyngitis, unspecified (principal); K02.9 Dental caries, unspecified; H92.01 Otalgia, right ear; K21.9 Gastro-esophageal reflux disease without esophagitis; I10 Essential (primary) hypertension
CPT/HCPCS: 87081; 87880; 99283